=== PATIENT | female | born 1970 | race Caucasian/White ===

== ENCOUNTER 2021-12-06 00:07 | Emergency (ER) | payer SELFPAY ==
[~2021-12-06] VITALS: Ht 165.1 cm; Wt 66.3 kg
[2021-12-06 01:45] VITALS: BP 146/92
[2021-12-06] MEDS ORDERED: LIDOCAINE HCL/EPINEPHRINE 1%-EPI 1:100,000 20 ML VIAL INFIL ONE (01:45)
[2021-12-06] MEDS ORDERED: IBUPROFEN 600MG TABLET PO ONE (01:45)
[2021-12-06] MEDS ORDERED: TETANUS, DIPHTHERIA, PERTUSSIS VAC/PF 0.5ML (>10YR OLD) IM ONE (01:45)
[2021-12-06] MEDS ORDERED: BACITRACIN ZINC OINT UDPKT TOP ONE (03:15)
[2021-12-06] MEDS ORDERED: AMOX-424 MT (03:20)
[2021-12-06] MEDS ORDERED: IBUP-2029 MT (03:20)
== END 2021-12-06 03:53 | disposition home or self-care (01) ==
LOC: ER 00:07
DX: S81.851A Open bite, right lower leg, initial encounter (principal); I10 Essential (primary) hypertension; W54.0XXA Bitten by dog, initial encounter; Y93.89 Activity, other specified; Y92.9 Unspecified place or not applicable
CPT/HCPCS: 12002; 90471; 90715; 99283; J3490; Z7610

== ENCOUNTER 2021-12-26 14:23 | Emergency (ER) | payer MEDICAID ==
[~2021-12-26] VITALS: Ht 165.1 cm; Wt 67.0 kg
[~2021-12-26 14:23] MED LIST: AMOX-424 MT; IBUP-2029 MT
[2021-12-26 14:34] VITALS: BP 152/81
[2021-12-26] MEDS ORDERED: IBUP-2029 PO (17:18)
[2021-12-26] MEDS ORDERED: BO1 TP (17:18)
[2021-12-26] MEDS ORDERED: BACITRACIN ZINC OINT UDPKT TOP ONE ×2 (17:30→19:00)
[2021-12-26] MEDS ORDERED: LIDOCAINE HCL/PF 1% 10 MG/ML 5ML VIAL INFIL ONE (18:15)
== END 2021-12-26 18:52 | disposition home or self-care (01) ==
LOC: ER 14:37
DX: Z48.00 Encounter for change or removal of nonsurgical wound dressing (principal)
CPT/HCPCS: 99282; J3490

== ENCOUNTER 2023-11-14 05:07 | Emergency (ER) | payer MEDICAID ==
[~2023-11-14] VITALS: Ht 167.6 cm; Wt 75.0 kg
[~2023-11-14 05:07] MED LIST changes: +BO1 TP; +IBUP-2029 PO
[2023-11-14 05:20] VITALS: O2SAT 100
[2023-11-14 08:47] LABS: BASOPHILS % 0.9 % (0.0-2.0); EOSINOPHILS % 10.7 % (0.0-5.0); HEMATOCRIT. 41.1 % (36.0-48.0); LYMPHOCYTES % 38.1 % (20.0-50.0); MEAN CORPUSCULAR HEMOGLOBIN 32.4 pg (28.0-32.0); MEAN CORPUSCULAR HGB CONC 34.1 g/dL (31.0-37.0); MEAN CORPUSCULAR VOLUME 94.9 fL (81.0-99.0); MEAN PLATELET VOLUME 8.4 fl (7.4-10.4); NEUTROPHILS % 44.3 % (40.0-76.0); PLATELET 312 x1000/uL (130-400); RED BLOOD CELL COUNT 4.33 mill/uL (4.2-5.4); RED CELL DISTRIBUTION WIDTH 13.1 % (11.6-14.6)
[2023-11-14 08:55] LABS: CHLORIDE 106 mEq/L (98-107); POTASSIUM 3.6 mEq/L (3.5-5.1); SODIUM 141 mEq/L (136-145)
[2023-11-14 08:56] LABS: CARBON DIOXIDE 26 mEq/L (21-32)
[2023-11-14 09:01] LABS: CREATININE 0.7 mg/dL (0.6-1.0); GLUCOSE 93 mg/dL (70-105); UREA NITROGEN BLOOD 8 mg/dL (9-23)
[2023-11-14 09:03] LABS: ALANINE AMINOTRANSFERASE 36 IU/L (10-49); ALBUMIN 4.7 g/dL (3.2-4.8); ASPARTATE AMINOTRANSFERASE 46 IU/L (<34); BILIRUBIN TOTAL 0.5 mg/dL (0.1-1.0); PROTEIN TOTAL 7.5 g/dL (6.0-8.3)
[2023-11-14] MEDS: KETOROLAC 60MG/2ML VIAL IM STA (09:08)
[2023-11-14 09:41] LABS: TROPONIN I HIGH SENSITIVITY < 4 ng/L (3.0-34)
[2023-11-14] MEDS ORDERED: NAPR500T7 MT (12:06)
[2023-11-14 12:12] VITALS: BP 124/76; PULSE 69; RESP 18; TEMP 98.1
== END 2023-11-14 12:21 | disposition home or self-care (01) ==
LOC: ER 05:07
DX: M79.10 Myalgia, unspecified site (principal); I10 Essential (primary) hypertension; W18.39XA Other fall on same level, initial encounter; Y93.89 Activity, other specified; Y92.89 Other specified places as the place of occurrence of the external cause; Y99.8 Other external cause status
CPT/HCPCS: 99285; 71250; 80053; 85025; 84484; 36415; 74176; 93005; 96372; J1885